=== PATIENT | male | born 1990 | race Two or more races ===

== ENCOUNTER 2019-11-26 06:13 | Emergency (ER) | payer MEDICAID ==
[~2019-11-26] VITALS: Ht 177.8 cm; Wt 89.1 kg
[2019-11-26] MEDS ORDERED: CYCLOBENZAPRINE HCL 10 MG TABLET PO ONE (07:00)
[2019-11-26 07:27] VITALS: BP 142/78
== END 2019-11-26 08:28 | disposition home or self-care (01) ==
LOC: EMS 06:13
DX: M54.5 Low back pain (principal); R10.30 Lower abdominal pain, unspecified; K59.00 Constipation, unspecified
CPT/HCPCS: 87491; 87591